=== PATIENT | male | born 1960 | race Caucasian/White ===

== ENCOUNTER 2019-04-27 07:39 | Outpatient (CLI) | payer OTHER ==
[2019-04-27] MEDS ORDERED: FLUMAZENIL 0.1 MG/1 ML, 5ML ONE (08:20)
[2019-04-27] MEDS ORDERED: NALOXONE 1 MG/ML, 2ML ONE (08:20)
[2019-04-27] MEDS ORDERED: MIDAZOLAM 1 MG/ML, 5ML ONE (08:20)
[2019-04-27] MEDS ORDERED: FENTANYL PF 100 MCG/2ML ONE (08:20)
== END 2019-04-27 23:59 | disposition home or self-care (01) ==
LOC: RAD 07:39
PROVIDERS: ATTEND Physician Assistant
DX: M25.512 Pain in left shoulder (principal)
CPT/HCPCS: 73221; 99156; 99157; J2250; J3010; J2310

== ENCOUNTER → 2020-02-14 | Outpatient (CLI) | payer OTHER | END | disposition home or self-care (01) | LOC: CVU 15:40 | PROVIDERS: ATTEND Family Medicine | DX: I08.2 Rheumatic disorders of both aortic and tricuspid valves (principal); R01.1 Cardiac murmur, unspecified | CPT/HCPCS: 93306 ==